=== PATIENT | male | born 1965 | race African-American/Black ===

== ENCOUNTER 2017-11-18 19:47 | Emergency (ER) | payer OTHER | END 2017-11-18 21:00 | disposition left against medical advice (07) | LOC: ER 19:47 | DX: Z53.21 Procedure and treatment not carried out due to patient leaving prior to being seen by health care provider (principal) ==

== ENCOUNTER 2024-01-16 12:14 | Emergency (ER) | payer OTHER, MEDICARE ==
[~2024-01-16] VITALS: Ht 175.3 cm; Wt 90.0 kg
[2024-01-16 12:31] VITALS: O2SAT 98
[2024-01-16] MEDS: ACETAMINOPHEN 325MG TABLET PO ONE (13:05)
[2024-01-16] MEDS ORDERED: TOPUD MT (14:41)
[2024-01-16 15:09] VITALS: BP 168/101; PULSE 95; RESP 20; TEMP 98.3
== END 2024-01-16 15:11 | disposition home or self-care (01) ==
LOC: ER 12:14
DX: S09.8XXA Other specified injuries of head, initial encounter (principal); S40.011A Contusion of right shoulder, initial encounter; S30.0XXA Contusion of lower back and pelvis, initial encounter; Z98.890 Other specified postprocedural states; X58.XXXA Exposure to other specified factors, initial encounter; Y93.89 Activity, other specified; Y92.89 Other specified places as the place of occurrence of the external cause; Y99.8 Other external cause status
CPT/HCPCS: 72131; 73030; 99284